=== PATIENT | female | born 1975 | race Caucasian/White ===

== ENCOUNTER 2022-04-18 06:10 | Emergency (ER) | payer OTHER ==
--- OUTSIDE RECORDS SUMMARY | 2022-04-18 06:12 | XMS REPORT | Continuity of Care Document ---
:1975 Author Organization [facility] t Address [address] [place] [address] Care Team Providers Name Role Phone VICKY_LEANDRO_Shane Attending Clinician Unavailable VICKY_TERESE_Shane_G Attending Clinician Unavailable Damaso Lynn Attending Clinician [phone] VICKY_LEANDRO_Shane Admitting Clinician Unavailable VICKY_TERESE_Shane_G Admitting Clinician Unavailable Payers Payer Name Policy Type Policy Number Effective Date Expiration Date S tamika [employer] - CHOICE [id number] 2017 00:00:00 (POS II) Problems This patient has no known problems. Allergies, Adverse Reactions, Alerts This patient has no known allergies or adverse reactions. Medications This patient has no known medications. Procedures This patient has no known procedures. Encounters Start End Encounter Admission Attending Care Care Encounter Source Date/Time Date/Time Type Type Clinicians Facility Department ID 2021-12-17 2021-12-17 Outpatient [facility] PRIV PRIV [id number] [facility] 09:40:00 09:40:00 _Shane [id number] Medic al 2021-12-10 2021-12-10 Outpatient [facility] PRIV PRIV [id number] [facility] 02:05:00 02:05:00 _Shane [id number] Medic al 2021-12-09 2021-12-09 Outpatient PRIV PRIV [id number] [facility] 02:10:00 02:10:00 [id number] Medica l 2021-11-26 2021-11-26 Outpatient GC_[facility]_ PRIV PRIV [id number] [facility] 11:07:00 11:07:00 Neal [id number] Medi lisa 2021-11-26 2021-11-26 Outpatient [facility] [id number] 00:00:00 00:00:00 Damaso [id number] Vince [id number] 2021-11-25 2021-11-25 Outpatient [facility]_ PRIV PRIV [id number] [facility] 11:29:00 11:29:00 Neal [id number] [facility] Results This patient has no known results.
--- NOTE | 2022-04-18 06:43 | EDPHYS ---
Physician Documentation [facility] Name: Vicky Santillan Age: 46 yrs Sex: Female : 1975 Arrival Date: 04/18/2022 Time: 06:14 Bed 13 Private MD: SONA Physician Eri Berrios HPI: 04/18 06:37 This 46 yrs old Female presents to ER via Wheelchair with complaints of Insect Bite. sd2 06:37 46 yo F presents with CC of L foot pain and swelling after being [place] by [place] "biting fly" sd[place]. She reports she went into the saltwater afterwards and felt okay. Reports has gradually worsened since then with significant swelling and redness today. Endorses pruritus. Took Tylenol last night with some relief. Denies fevers or vomiting. . 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 - Social history:: Smoking status: unknown. ROS: 06:37 Constitutional: Negative for fever, chills, and weight loss, Eyes: Negative for injury, sd2 pain, redness, and discharge, Cardiovascular: Negative for chest pain, palpitations, and edema, Respiratory: Negative for shortness of breath, cough, wheezing. Abdomen/GI: Negative for abdominal pain, nausea, vomiting, diarrhea. MS/Extremity: Negative for injury and deformity, Skin: Negative for injury and discoloration, Positive for rash Exam: 06:37 Constitutional: This is a well developed, well nourished patient who is awake, alert, sd2 and in no acute distress. Head/Face: Normocephalic, atraumatic. Eyes: EOMI, normal conjunctiva bilaterally Cardiovascular: Regular rate and rhythm 2+ distal pulses. Respiratory: No increased work of breathing or respiratory distress Skin: Warm, dry with normal turgor. Erythema and edema noted to top of L foot with associated warmth. Pt able to move toes without issue. MS/ Extremity: Pulses equal, no cyanosis. Neurovascular intact. Full, normal range of motion. Psych: Awake, alert, with orientation to person, place and time. Behavior, mood, and affect are within normal limits. Vital Signs: 06:23 BP 123 / 89; Pulse 79; Resp 16 S; Temp 98.2(O); Pulse Ox 99% on R/A; Weight 70.31 kg bb (R); Height 5 ft. 7 in. (170.18 cm) (R); Pain 8/10; 06:23 Body Mass Index 24.28 (70.31 kg, 170.18 cm) bb MDM: 06:33 Patient medically screened. sd2 06:37 Differential diagnosis: Insect bite, impetigo, cellulitis, allergic reaction among sd2 others. Data reviewed: vital signs, nurses notes. Counseling: I had a detailed discussion with the patient and/or guardian regarding: the historical points, exam findings, and any diagnostic results supporting the discharge/admit diagnosis, the need for outpatient follow up, to return to the emergency department if symptoms worsen or persist or if there are any questions or concerns that arise at home. Medical screen evaluation completed. EMTALA emergency medical condition absent. Special discussion: I discussed in detail with the patient the higher chance of wound infection based on his presenting history. ED course: Clinical exam consistent with allergic reaction vs cellulitis and superinfection. Will treat for both. Steroids, benadryl and Pepcid given in ER. Pt to follow up outpatient with PCP for re-evaluation. Will place on outpatient oral antibiotics and steroids. Pt advised to take antihistamines as needed for itching and swelling in addition to Tylenol and Motrin as needed for pain. . Administered Medications: 06:43 Drug: predniSONE 60 mg Route: PO; ke1 06:46 Follow up: Response: Medication administered at discharge. ke1 06:43 Drug: Benadryl (diphenhydrAMINE) 50 mg Route: PO; ke1 06:46 Follow up: Response: Medication administered at discharge. ke1 06:43 Drug: Pepcid (famotidine) 20 mg Route: PO; ke1 06:45 Follow up: Response: Medication administered at discharge. ke1 Disposition Summary: 04/18/22 06:43 Discharge Ordered Location: Home sd2 Problem: new sd2 Symptoms: are unchanged sd2 Condition: Stable sd2 Diagnosis - Insect bite (nonvenomous) of foot sd2 - Cellulitis of left lower limb sd2 Followup: sd2 - With: Private Physician - When: 2 - 3 days - Reason: Wound Recheck, Recheck today's complaints, Continuance of care, Re-evaluation by your physician Discharge Instructions: - Discharge Summary Sheet sd2 - Insect Bite, Adult sd2 - Cellulitis, Adult sd2 Forms: - Medication Reconciliation Form sd2 - Thank You Letter sd2 - Antibiotic Education sd2 - Prescription Opioid Use sd2 Prescriptions: - Cephalexin 500 mg Oral Capsule - take 1 capsule by ORAL route 4 times per day for 10 days; 40 capsule; Refills: sd2 0, Product Selection Permitted - Doxycycline Hyclate 100 mg Oral Tablet - take 1 tablet by ORAL route every 12 hours for 10 days; 20 tablet; Refills: 0, sd2 Product Selection Permitted - Prednisone 20 mg Oral Tablet - take 2 tablets by ORAL route once daily for 5 days; 10 tablet; Refills: 0, sd2 Product Selection Permitted Signatures: Joelle Garrison, RN Bobbi Garces RN RN ke1 Eri Berrios MD MD sd2
--- NOTE | 2022-04-18 06:43 | ER ---
Nurse's Notes [facility] Name: Vicky Santillan Age: 46 yrs Sex: Female : 1975 Arrival Date: 04/18/2022 Time: 06:14 Bed 13 Private MD: Diagnosis: Insect bite (nonvenomous) of foot;Cellulitis of left lower limb Presentation: 04/18 06:23 Chief complaint: Patient states: she was at the beach [place] and was bitten by an bb insect on top of her right foot it was a little sore yesterday but she woke up this morning with her foot reddened and swollen and very painful denies fever. Coronavirus screen: At this time, the client does not indicate any symptoms associated with coronavirus-19. Ebola Screen: No symptoms or risks identified at this time. Initial Sepsis Screen: Does the patient meet any 2 criteria? No. Patient's initial sepsis screen is negative. Does the patient have a suspected source of infection? Yes: Skin breakdown/wound. Risk Assessment: Do you want to hurt yourself or someone else? Patient reports no desire to harm self or others. Onset of symptoms was April 18, 2022. 06:23 Method Of Arrival: Wheelchair bb 06:23 Acuity: JEAN 3 bb Triage Assessment: 06:44 Bite description: bite sustained to right foot by an unknown animal, animal ke1 information:. General: Appears in no apparent distress. Behavior is appropriate for age. Pain: Complains of pain in right foot. 06:53 Bite description: animal information: vaccination(s) is not applicable. 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 - Social history:: Smoking status: unknown. Screenin:43 Abuse screen: Denies threats or abuse. Nutritional screening: No deficits noted. ke1 Tuberculosis screening: No symptoms or risk factors identified. Fall Risk No fall in past 12 months (0 pts). Secondary diagnosis (15 points) left foot swollen. No IV (0 pts). Ambulatory Aid- None/Bed Rest/Nurse Assist (0 pts). Gait- Normal/Bed Rest/Wheelchair (0 pts) Mental Status- Oriented to own ability (0 pts). Total Navarro Fall Scale indicates No Risk (0-24 pts). Assessment: 06:40 Derm: Skin is intact, Skin is pink. ke1 Vital Signs: 06:23 BP 123 / 89; Pulse 79; Resp 16 S; Temp 98.2(O); Pulse Ox 99% on R/A; Weight 70.31 kg bb (R); Height 5 ft. 7 in. (170.18 cm) (R); Pain 8/10; 06:23 Body Mass Index 24.28 (70.31 kg, 170.18 cm) ED Course: 06:14 Patient arrived in ED. ja2 06:18 Bobbi Jeffrey, RN is Primary Nurse. ke1 06:25 Triage completed. bb 06:25 Arm band placed on Patient placed in an exam room, on a stretcher, on pulse oximetry. bb Family accompanied patient. 06:33 Eri Berrios MD is Attending Physician. sd2 06:45 Patient has correct armband on for positive identification. Bed in low position. ke1 06:52 No provider procedures requiring assistance completed. ke1 06:53 Patient did not have IV access during this emergency room visit. ke1 Administered Medications: 06:43 Drug: predniSONE 60 mg Route: PO; ke1 06:46 Follow up: Response: Medication administered at discharge. ke1 06:43 Drug: Benadryl (diphenhydrAMINE) 50 mg Route: PO; ke1 06:46 Follow up: Response: Medication administered at discharge. ke1 06:43 Drug: Pepcid (famotidine) 20 mg Route: PO; ke1 06:45 Follow up: Response: Medication administered at discharge. ke1 Medication: 06:53 VIS not applicable for this client. ke1 Outcome: 06:43 Discharge ordered by . sd2 06:53 Discharged to home via wheelchair. ke1 06:53 Condition: good 06:53 Condition: good 06:53 Discharge instructions given to patient. 06:54 Patient left the ED. ke1 Signatures: Joelle Garrison RN RN bb Meryl Zee Kouassi, RN RN ke1 Eri Berrios MD MD sd2
[2022-04-18] MEDS ORDERED: DIPHENHYDRAMINE 25 MG TAB/CAP ONE (06:50)
[2022-04-18] MEDS ORDERED: predniSONE 20 MG TAB ONE (06:50)
[2022-04-18] MEDS ORDERED: FAMOTIDINE 20 MG TAB ONE (06:50)
[2022-04-20 07:29] VITALS: BP 123/89; TEMP 98.2; O2SAT 99
== END 2022-04-18 06:54 | disposition home or self-care (01) ==
LOC: ER 06:10
DX: L03.116 Cellulitis of left lower limb (principal); S90.862A Insect bite (nonvenomous), left foot, initial encounter; Z98.82 Breast implant status
CPT/HCPCS: 99283; J7512

== ENCOUNTER 2025-05-04 12:06 | Emergency (ER) | payer OTHER ==
--- NOTE | 2025-05-04 12:54 | RAD REPORT ---
EXAM: CT brain without contrast HISTORY: SYNCOPE COMPARISON: 08/04/2016 TECHNIQUE: Multiple contiguous axial images were obtained and a CT of the brain without contrast. Sag ittal and coronal reformats were performed. One or more of the following dose reduction techniques were used: Automated exposure control, adjust ment of the mA and/or kV according to patient size, and/or iterative reconstruction. FINDINGS: No evidence of hydrocephalus, intracranial hemorrhage, or extra-axial fluid collection. The brain is normal in morphology. No evidence of midline shift or areas of brain edema. The calvarium is intact. The visualized paranasal sinuses and mastoid air cells are essentially clear . IMPRESSION: No evidence of acute intracranial abnormality.
--- NOTE | 2025-05-04 13:18 | RAD REPORT ---
EXAMINATION: ONE VIEW CHEST XR CLINICAL INDICATION: dizzines TECHNIQUE: Frontal chest projection is submitted. Examination is limited by patient positioning and t echnique. COMPARISON: 08/04/2016 FINDINGS: The lungs are well inflated and clear. The heart is normal in size. No displaced fractures identified . IMPRESSION: No acute intrathoracic abnormalities.
[2025-05-04] MEDS ORDERED: NA CHLORIDE 0.9% 1,000 ML ONE (13:30)
[2025-05-04 13:32] LABS: Absolute Lymphocytes (CBC) 1.0 K/uL (0.7-4.9); Hematocrit 40.4 % (36.0-45.0); Hemoglobin 13.6 g/dL (12.0-15.0); MCH 33.5 pg (27.0-35.0); MCHC 33.7 g/dL (32.0-36.0); MCV 99.5 fL (80-100); MPV 9.0 fL (7.6-11.3); Nucleated RBC Absolute Count 0.0 (0-0); Nucleated Red Blood Cells % 0.0 % (0-0); RBC Red Blood Cell Count 4.06 M/uL (3.86-4.86); White Blood Count 6.70 thou/uL (4.3-10.9)
[2025-05-04 13:47] LABS: ALT/SGPT 25 U/L (13-56); AST/SGOT 15 U/L (15-37); Albumin 3.7 g/dL (3.4-5.0); Albumin/Globulin Ratio 1.1 (1.1-1.8); Alkaline Phosphatase 47 U/L (45-117); Anion Gap 9.3 mEq/L (5.0-15.0); BUN Blood Urea Nitrogen 11 mg/dL (7-18); Globulin 3.4 g/dL (2.3-3.5); Glucose Level 106 mg/dL (74-106); Magnesium 1.8 mg/dL (1.6-2.4); Potassium 4.3 mEq/L (3.5-5.1)
[2025-05-04 13:56] LABS: Bilirubin Indirect, Calculated 0.0 mg/dL (0.2-0.8); Troponin High Sensitivity < 3.0 pg/mL (<58.9)
--- NOTE | 2025-05-04 14:31 | ER ---
Nurse's Notes [facility] Name: Vicky Tejeda Age: 49 yrs Sex: Female : 1975 Arrival Date: 05/04/2025 Time: 12:06 Bed 20 Private MD: Diagnosis: Syncope Near Presentation: 05/04 12:18 Chief complaint: Patient states: BECAME COLD, CHEST AND STOMACH BURNING, VISION BLURRED dd2 AND FELT LIKE SHE WAS GOING TO PASS OUT. REPORTS SHE IS NOW DIZZY, SHAKY AND BLURRED VISION. PT ALSO REPORTS THIS OCCURRED 2.5 MONTHS PRIOR WITH ACTUAL PASSING OUT. Coronavirus screen: At this time, the client does not indicate any symptoms associated with coronavirus-19. Ebola Screen: No symptoms or risks identified at this time. Initial Sepsis Screen: Does the patient meet any 2 criteria? No. Patient's initial sepsis screen is negative. Does the patient have a suspected source of infection? No. Patient's initial sepsis screen is negative. Risk Assessment: Do you want to hurt yourself or someone else? Patient reports no desire to harm self or others. Onset of symptoms was May 04, 2025. 12:18 Method Of Arrival: Wheelchair dd2 12:18 Acuity: JEAN 3 dd2 Triage Assessment: 12:22 General: Appears in no apparent distress. uncomfortable, Behavior is cooperative, dd2 appropriate for age, anxious. Pain: Denies pain. Neuro: Reports blurred vision dizziness, NEAR SYNCOPE. 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 - Infectious Disease History:: Denies. - Social history:: Smoking status: Reported history of juuling and/or vaping. Screenin:25 [facility] ED Fall Risk Assessment (Adult) History of falling in the last 3 months, db including since admission No falls in past 3 months (0 pts) Confusion or Disorientation No (0 pts) Intoxicated or Sedated No (0 pts) Impaired Gait No (0 pts) Mobility Assist Device Used No (0 pt) Altered Elimination No (0 pt) Score/Fall Risk Level 0 - 2 = Low Risk Oriented to surroundings, Maintained a safe environment. Abuse screen: Denies threats or abuse. Denies injuries from another. Nutritional screening: No deficits noted. Tuberculosis screening: No symptoms or risk factors identified. Assessment: 12:37 Reassessment: Patient and/or family updated on plan of care and expected duration. Pain ll1 level reassessed. 13:30 Reassessment: Patient appears in no apparent distress at this time. Patient and/or db family updated on plan of care and expected duration. Pain level reassessed. Patient is alert, oriented x 3, equal unlabored respirations, skin warm/dry/pink. 14:41 Reassessment: Patient appears in no apparent distress at this time. Patient and/or db family updated on plan of care and expected duration. Pain level reassessed. Patient is alert, oriented x 3, equal unlabored respirations, skin warm/dry/pink. General: Appears in no apparent distress. comfortable, Behavior is calm, cooperative. Neuro: Level of Consciousness is awake, alert, obeys commands, Oriented to person, place, time, situation. Respiratory: Airway is patent Respiratory effort is even, unlabored, Respiratory pattern is regular, symmetrical. Vital Signs: 12:18 BP 131 / 91; Pulse 67; Resp 16; Temp 98.2; Pulse Ox 100% ; dd2 13:17 BP 118 / 77 Supine; Pulse 63; db 13:19 BP 130 / 93 Sitting; Pulse 60; db 13:21 BP 133 / 95 Standing; Pulse 78; db 14:30 BP 124 / 81; Pulse 63; Resp 17; Pulse Ox 100% on R/A; db ED Course: 12:09 Patient arrived in ED. sj2 12:11 [facility]C [facility]. kb 12:11 Mainor Chauhan MD is Attending Physician. kb 12:21 Triage completed. dd2 12:22 Arm band placed on right wrist. dd2 12:36 Patient placed in an exam room, on a stretcher. ll1 12:37 Warm blanket given. ll1 12:51 CT Head Brain wo Cont In Process Unspecified. EDMS 13:13 EKG done, by ED staff, reviewed by Eve SONI. rk3 13:15 Chest Single View XRAY In Process Unspecified. EDMS 13:16 Initial lab(s) drawn, by me, sent to lab. Inserted saline lock: 20 gauge in right db antecubital area, using aseptic technique. Blood collected. Flushed with 10 mL NS. 13:24 Rut Mcneil, RN is Primary Nurse. db 14:41 Patient has correct armband on for positive identification. Bed in low position. Call db light in reach. Side rails up X 1. Provided Education on: DISCHARGE AND FOLLOWUP. Client placed on continuous cardiac and pulse oximetry monitoring. NIBP monitoring applied. wood heel cementer on. Pulse ox on. NIBP on. 14:41 No provider procedures requiring assistance completed. IV discontinued, intact, db bleeding controlled, No redness/swelling at site. Administered Medications: 13:41 Drug: NS 0.9% IV 1000 ml IV at 1000 ml once; to be given as a bolus over 60 minutes db Route: IV; Rate: 1000 ml; Site: right antecubital; 14:44 Follow up: Response: No adverse reaction; IV Status: Completed infusion; IV Intake: db 1000ml Medication: 13:25 VIS not applicable for this client. db Intake: 14:44 IV: 1000ml; Total: 1000ml. db Outcome: 14:30 Discharge ordered by . artur 14:41 Discharged to home ambulatory, with family, db 14:41 Condition: stable 14:41 Discharge instructions given to patient, family, Instructed on discharge instructions, follow up and referral plans. 14:44 Patient left the ED. db Signatures: Dispatcher [employer] EDMT Eve Zarate, DENTAL FRONT OFFICE ASSISTANT-C DENTAL FRONT OFFICE ASSISTANT-Alessia Pardo RN RN 1 Rut Mcneil RN RN db EVIE WALLACE RN RN dd2 Lacho Mejia sj2 [place] rk3 Corrections: (The following items were deleted from the chart) 12:22 12:18 Chief complaint: Patient states: BECAME COLD AND FELT LIKE SHE WAS GOING TO PASS dd2 OUT. REPORTS SHE IS NOW DIZZY, SHAKY AND SHAKING. PT ALSO REPORTS THIS OCCURRED 2.5 MONTHS PRIOR WITH ACTUAL PASSING OUT. dd2 12:23 12:22 Social history: Smoking status: Patient denies any tobacco usage or history of. dd2 dd2
--- NOTE | 2025-05-04 14:31 | EDPHYS ---
Physician Documentation [facility] Name: Vicky Tejeda Age: 49 yrs Sex: Female : 1975 Arrival Date: 05/04/2025 Time: 12:06 Bed 20 Private MD: ED Physician Mainor Chauhan HPI: 05/04 14:45 This 49 yrs old Female presents to ER via Wheelchair with complaints of Dizziness, Near kb Syncope. 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 States kb she was in the car, pulled up to a restaurant for lunch and started feeling like she was going to pass out. States she has been shaky since then. Pt had similar symptoms 3 months ago while in [facility], was seen at an ER there and discharged home. . 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 - Infectious Disease History:: Denies. - Social history:: Smoking status: Reported history of juuling and/or vaping. ROS: 13:14 Constitutional: As per HPI kb Exam: 13:13 Constitutional: This is a well developed, well nourished patient who is awake, alert, kb and in no acute distress. Head/Face: Normocephalic, atraumatic. ENT: Moist Mucous membranes Cardiovascular: Regular rate Respiratory: Respirations even and unlabored. No increased work of breathing. Talking in full sentences Abdomen/GI: Soft, non-tender. No distention Skin: Warm, dry with normal turgor. Normal color. MS/ Extremity: Pulses equal, no cyanosis. Neurovascular intact. Full, normal range of motion. Neuro: Awake and alert, GCS 15, oriented to person, place, time, and situation. 13:13 ECG was reviewed by the Attending Physician. Vital Signs: 12:18 BP 131 / 91; Pulse 67; Resp 16; Temp 98.2; Pulse Ox 100% ; dd2 13:17 BP 118 / 77 Supine; Pulse 63; db 13:19 BP 130 / 93 Sitting; Pulse 60; db 13:21 BP 133 / 95 Standing; Pulse 78; db 14:30 BP 124 / 81; Pulse 63; Resp 17; Pulse Ox 100% on R/A; db MDM: 12:11 Medical Screening Exam initiated kb 14:43 Differential Diagnosis: cardiac arrhythmia, emotional response, idiopathic syncope, kb vasovagal episode, dehydration. Data reviewed: vital signs, nurses notes. Consideration of Admission/Observation Escalation of care including admission/observation considered. admission considered but symptoms resolved. Pt will follow up with cardiology and neurology. Return precautions given. Historians other than the Patient: Spouse/Significant Other: spouse. Counseling: I had a detailed discussion with the patient and/or guardian regarding the historical points, exam findings, and any diagnostic results supporting the discharge/admit diagnosis, lab results, radiology results, the need for outpatient follow up, a family practitioner, to return to the emergency department if symptoms worsen or persist or if there are any questions or concerns that arise at home. 05/04 12:24 Order name: Basic Metabolic Panel; Complete Time: 14:00 kb 05/04 12:24 Order name: CBC with Diff; Complete Time: 13:45 kb 05/04 12:24 Order name: Hepatic Function; Complete Time: 14:00 kb 05/04 12:24 Order name: Magnesium; Complete Time: 14:00 kb 05/04 12:24 Order name: Troponin High Sensitivity; Complete Time: 14:00 kb 05/04 12:24 Order name: CT Head Brain wo Cont; Complete Time: 12:58 kb 05/04 12:24 Order name: Chest Single View XRAY; Complete Time: 13:45 kb 05/04 12:24 Order name: Cardiac monitoring; Complete Time: 13:14 kb 05/04 12:24 Order name: EKG - Nurse/Tech; Complete Time: 13:14 kb 05/04 12:24 Order name: IV Saline Lock; Complete Time: 13:38 kb 05/04 12:24 Order name: Labs collected and sent; Complete Time: 13:38 kb 05/04 12:24 Order name: NPO; Complete Time: 13:38 kb 05/04 12:24 Order name: O2 Per Protocol; Complete Time: 13:13 kb 05/04 12:24 Order name: O2 Sat Monitoring; Complete Time: 13:13 kb 05/04 12:24 Order name: Orthostatics; Complete Time: 13:38 kb EC:13 Rate is 63 beats/min. Rhythm is regular. QRS [place] is Normal. AK interval is normal at kb 130 msec. QRS interval is normal at 82 msec. QT interval is normal at 448 msec. Administered Medications: 13:41 Drug: NS 0.9% IV 1000 ml IV at 1000 ml once; to be given as a bolus over 60 minutes db Route: IV; Rate: 1000 ml; Site: right antecubital; 14:44 Follow up: Response: No adverse reaction; IV Status: Completed infusion; IV Intake: db 1000ml Disposition: 16:43 Co-signature as Attending Physician, Mainor Chauhan MD I reviewed the patient's care rn provided by the Advanced Practice Provider and agree with the diagnosis and treatment plan. Disposition Summary: 05/04/25 14:30 Discharge Ordered Notes: Location: Home Condition: Stable kb Diagnosis - Syncope Near kb Followup: kb - With: Emergency Department - When: As needed - Reason: Worsening of condition Followup: kb - With: Private Physician - When: 2 - 3 days - Reason: Recheck today's complaints, Continuance of care, Re-evaluation by your physician Discharge Instructions: - Discharge Summary Sheet kb - Near-Syncope, Evzm-di-Xzof kb Forms: - Medication Reconciliation Form kb - Antibiotic Education kb - Prescription Opioid Use kb - Patient Portal Instructions kb - Leadership Thank You Letter kb Signatures: Dispatcher [employer] EDEve Licea, SANDIP-C PARTS COUNTER SALESPERSON-Mainor Carreon MD MD rn Benton, Danielle, RN RN db DAVIS, DIANA, RN RN dd2 Corrections: (The following items were deleted from the chart) 12:23 12:22 Social history: Smoking status: Patient denies any tobacco usage or history of. dd2 dd2 12:25 12:25 BASIC METABOLIC PANEL+C.LAB.BRZ ordered. EDMS EDMS 12:25 12:25 CBC+H.LAB.BRZ ordered. EDMS EDMS 12:25 12:25 HEPATIC FUNCTION+C.LAB.BRZ ordered. EDMS EDMS 12:25 12:25 MAGNESIUM+C.LAB.BRZ ordered. EDMS EDMS 12:25 12:25 Troponin High Sensitivity+C.LAB.BRZ ordered. EDMS EDMS 12:25 12:25 Head Brain Wo Cont+CT.RAD.BRZ ordered. EDMS EDMS : 12:25 Chest Single View+RAD.RAD.BRZ ordered. EDMS EDMS
[2025-05-04 21:06] VITALS: TEMP 98.2; O2SAT 100
[2025-05-04 21:12] VITALS: BP 124/81
== END 2025-05-04 14:44 | disposition home or self-care (01) ==
LOC: ER 12:06
DX: R55 Syncope and collapse (principal); R42 Dizziness and giddiness; Z98.82 Breast implant status
CPT/HCPCS: 93005; 85025; 80048; 36415; 83735; 80076; 84484; 70450; 71045; 96360; 99285; J7030